=== PATIENT | male | born 1960 | race Caucasian/White ===

== ENCOUNTER 2022-02-28 20:00 | Observation (INO) ==
[2022-02-28] MEDS ORDERED: Ondansetron 4 MG/2 ML VIAL IVP PRN (23:25)
[2022-02-28] MEDS ORDERED: Naloxone 0.4 MG/ML INJ IVP PRN (23:25)
[2022-02-28] MEDS ORDERED: Acetaminophen 325 MG TABLET PO PRN (23:25)
[2022-02-28] MEDS ORDERED: 0.9 % Sodium Chloride 1,000 ML IVC SCH (23:30)
[2022-02-28] MEDS ORDERED: Gadolinium Contrast Agent (WT Based) IV PRN (23:55)
[2022-03-01 00:52] LABS: Hematocrit 32.7 % (37.5-50.1); Hemoglobin 11.5 g/dL (12.9-16.9); Mean Corpuscular HGB Conc 35.2 g/dL (31.6-35.5); Mean Corpuscular Hemoglobin 31.4 pg (28.0-33.3); Mean Corpuscular Volume 89.3 fL (83.0-100.0); Mean Platelet Volume 8.3 fL (9.4-12.4); Platelet Count 317 K/mcL (140-400); Red Blood Count 3.66 M/mcL (4.19-5.50); Red Cell Distribution Width 11.9 % (11.5-14.5); White Blood Count 8.1 K/mcL (4.3-11.1)
[2022-03-01 01:11] LABS: Alanine Aminotransferase 5 Units/L (7-52); Albumin 3.5 g/dL (3.5-5.7); Albumin/Globulin Ratio 1.4 (1.1-2.2); Alkaline Phosphatase 76 Units/L (34-104); Aspartate Amino Transferase 14 Units/L (13-39); BUN/Creatinine Ratio 17 (6-26); Bilirubin,Total 0.4 mg/dL (0.3-1.0); Blood Urea Nitrogen 14 mg/dL (8-23); Calcium 8.4 mg/dL (8.6-10.3); Carbon Dioxide 27 mEq/L (23-29); Chloride 92 mEq/L (98-107); Globulin 2.5 g/dL (2.4-3.5); Glucose 97 mg/dL (70-105); Osmolality,Calculated 256 (280-300); Potassium 4.3 mEq/L (3.5-5.1); Sodium 123 mEq/L (136-145); eGFR For African Americans > 60 (> 60); eGFR For Non-African Americans > 60 (> 60)
[2022-03-01] MEDS: Nicotine 14 MG PATCH.TD24 TD SCH (01:35)
[2022-03-01] MEDS ORDERED: Gabapentin 100 MG CAPSULE PO ONE (01:40)
[2022-03-01] MEDS ORDERED: Furosemide 20 MG TABLET PO SCH (02:15)
[2022-03-01] MEDS: Budesonide/Formoterol 160/4.5 1 PUFF INH IH SCH ×3 (03:13→20:12)
[2022-03-01] MEDS: *HR* Enoxaparin 40 MG/0.4 ML SYRINGE SQ SCH (05:33)
[2022-03-01] MEDS: rOPINIRole 0.25 MG TABLET PO SCH ×2 (07:56→21:31)
[2022-03-01] MEDS: PARoxetine 10 MG TABLET PO SCH ×2 (07:57→21:30)
[2022-03-01] MEDS: Divalproex (12 HR) 500 MG TABLET PO SCH ×2 (07:58→21:31)
[2022-03-01] MEDS ORDERED: Gadolinium Contrast Agent (WT Based) IV PRN (08:06)
[2022-03-01] MEDS ORDERED: Iopamidol - 370 500 ML MLS IVP ONE (08:08)
[2022-03-01] MEDS ORDERED: GADOBUTROL 30 MMOL/30 ML VIAL IVP ONE (08:45)
[2022-03-01 09:42] LABS: BUN/Creatinine Ratio 17 (6-26); Blood Urea Nitrogen 11 mg/dL (8-23); Calcium 8.3 mg/dL (8.6-10.3); Carbon Dioxide 28 mEq/L (23-29); Chloride 91 mEq/L (98-107); Glucose 102 mg/dL (70-105); Osmolality,Calculated 254 (280-300); Potassium 3.7 mEq/L (3.5-5.1); Sodium 122 mEq/L (136-145); eGFR For African Americans > 60 (> 60); eGFR For Non-African Americans > 60 (> 60)
[2022-03-01] MEDS: 0.9 % Sodium Chloride 1,000 ML IVC SCH (14:35)
[2022-03-01 15:04] LABS: BUN/Creatinine Ratio 18 (6-26); Blood Urea Nitrogen 13 mg/dL (8-23); Calcium 8.8 mg/dL (8.6-10.3); Carbon Dioxide 27 mEq/L (23-29); Chloride 90 mEq/L (98-107); Glucose 97 mg/dL (70-105); Osmolality,Calculated 252 (280-300); Potassium 3.9 mEq/L (3.5-5.1); Sodium 121 mEq/L (136-145); eGFR For African Americans > 60 (> 60); eGFR For Non-African Americans > 60 (> 60)
[2022-03-01 20:22] LABS: BUN/Creatinine Ratio 17 (6-26); Blood Urea Nitrogen 12 mg/dL (8-23); Calcium 8.3 mg/dL (8.6-10.3); Carbon Dioxide 22 mEq/L (23-29); Chloride 93 mEq/L (98-107); Glucose 109 mg/dL (70-105); Osmolality,Calculated 258 (280-300); Potassium 4.4 mEq/L (3.5-5.1); Sodium 124 mEq/L (136-145); eGFR For African Americans > 60 (> 60); eGFR For Non-African Americans > 60 (> 60)
[2022-03-01] MEDS ORDERED: clonazePAM 0.5 MG TABLET PO SCH (21:00)
[2022-03-01] MEDS ORDERED: QUEtiapine Fumarate 25 MG TABLET PO SCH (21:00)
[2022-03-02] MEDS: Nicotine 14 MG PATCH.TD24 TD SCH (01:16)
[2022-03-02 03:02] VITALS: O2SAT 97
[2022-03-02] MEDS: *HR* Enoxaparin 40 MG/0.4 ML SYRINGE SQ SCH (04:56)
[2022-03-02] MEDS: 0.9 % Sodium Chloride 1,000 ML IVC SCH (04:56)
[2022-03-02 05:40] LABS: Basophils % 0.6 %; Eosinophils # 0.1 K/mcL (0.0-0.6); Eosinophils % 1.1 %; Hematocrit 30.3 % (37.5-50.1); Hemoglobin 10.7 g/dL (12.9-16.9); Immature Granulocytes % 0.6 % (0-4); Lymphocytes # 1.5 K/mcL (0.6-4.6); Lymphocytes % 24.1 %; Mean Corpuscular HGB Conc 35.3 g/dL (31.6-35.5); Mean Corpuscular Hemoglobin 31.8 pg (28.0-33.3); Mean Corpuscular Volume 90.2 fL (83.0-100.0); Mean Platelet Volume 8.5 fL (9.4-12.4); Monocytes # 0.8 K/mcL (0.0-1.3); Monocytes % 12.1 %; Neutrophils # 3.8 K/mcL (1.6-8.9); Platelet Count 286 K/mcL (140-400); Red Blood Count 3.36 M/mcL (4.19-5.50); Red Cell Distribution Width 11.8 % (11.5-14.5); Segmented Neutrophils % 61.5 %; White Blood Count 6.2 K/mcL (4.3-11.1)
[2022-03-02 05:54] LABS: INR 1.1; Prothrombin Time 11.7 Seconds (9.4-12.1)
[2022-03-02 05:58] LABS: BUN/Creatinine Ratio 14 (6-26); Blood Urea Nitrogen 9 mg/dL (8-23); Calcium 8.5 mg/dL (8.6-10.3); Carbon Dioxide 29 mEq/L (23-29); Chloride 97 mEq/L (98-107); Glucose 102 mg/dL (70-105); Magnesium 1.7 mg/dL (1.6-2.6); Osmolality,Calculated 263 (280-300); Phosphorous 3.3 mg/dL (2.7-4.5); Potassium 4.8 mEq/L (3.5-5.1); Sodium 127 mEq/L (136-145); eGFR For African Americans > 60 (> 60); eGFR For Non-African Americans > 60 (> 60)
[2022-03-02] MEDS: Budesonide/Formoterol 160/4.5 1 PUFF INH IH SCH (07:29)
[2022-03-02 07:42] VITALS: BP 162/74; PULSE 66; TEMP 97.8
[2022-03-02] MEDS: rOPINIRole 0.25 MG TABLET PO SCH (08:29)
[2022-03-02] MEDS: Divalproex (12 HR) 500 MG TABLET PO SCH (08:29)
[2022-03-02] MEDS: PARoxetine 10 MG TABLET PO SCH (08:29)
== END 2022-03-02 11:15 | disposition home or self-care (01) ==
LOC: 3BNU → SUATTDRO 22:58
PROVIDERS: ADMIT Internal Medicine; ATTEND Internal Medicine
PROC: IRLIVER (2022-03-01 12:00)